=== PATIENT | female | born 1980 ===

== ENCOUNTER 2017-02-05 12:37 | Inpatient (IN) | payer MEDICAID ==
[2017-02-05] MEDS ORDERED: Sodium Chloride 0.9% 1,000 ML IV ONE (12:57)
[2017-02-05] MEDS ORDERED: ACETYLCYSTEINE IVPB ONE (13:00)
[2017-02-05] MEDS ORDERED: DEXTROSE 5% IVPB ONE (13:00)
[2017-02-05] MEDS ORDERED: WATER IVPB ONE (13:00)
[2017-02-05 13:12] LABS: BASO # 0.1 K/uL (0.0-0.2); BASO % 0.8 % (0.0-2.0); EOS # 0.1 K/uL (0.0-0.7); EOS % 0.7 % (0.0-4.0); HEMATOCRIT 38.6 % (34.0-47.0); LYMPH # 1.6 K/uL (1.0-4.3); LYMPH % 11.3 % (20.0-40.0); MEAN CORPUSCULAR HEMOGLOBIN 28.3 pg (27.0-31.0); MEAN CORPUSCULAR HGB CONC 33.7 g/dL (33.0-37.0); MEAN PLATELET VOLUME 7.1 fL (7.2-11.7); MONO % 7.4 % (0.0-10.0); RED CELL DISTRIBUTION WIDTH 14.4 % (11.5-14.5)
[2017-02-05 13:13] LABS: MEAN CELL VOLUME 84.1 fL (81.0-99.0)
[2017-02-05 13:22] LABS: RBC URINE 30 /hpf (0-3); URINE BACTERIA RARE (<OCC); URINE BILIRUBIN NEGATIVE (NEGATIVE); URINE BLOOD 3+ (NEGATIVE); URINE COLOR Yellow (YELLOW); URINE GLUCOSE (UA) NORMAL (Normal); URINE KETONE NEGATIVE (NEGATIVE); URINE LEUKOCYTE ESTERASE NEG Leu/uL (Negative); URINE PROTEIN NEGATIVE (NEGATIVE); URINE UROBILINOGEN NORMAL mg/dL (0.2-1.0); WBC URINE 2 /hpf (0-5)
--- NOTE | 2017-02-05 13:22 | C.PDOC ---
History Of Present Illness 36 year old female, whose PMHx includes Depression, presents to the ED for psychiatric evaluation after a reported overdose at home earlier today. Patient reports she ingested a combination of Advil PM, Xanax, muscle relaxers, and heroin. Patient initially reported that she also took Tylenol, but then later denied this. Patient notes she overdosed as a suicide attempt. She denies homicidal ideation at this time. Time Seen by Provider: 02/05/17 13:01 Chief Complaint (Nursing): Psychiatric Evaluation History Per: Patient History/Exam Limitations: no limitations Onset/Duration Of Symptoms: Hrs Current Symptoms Are (Timing): Still Present Suicide/Self Injury Attempted (Context): Ingestion Modifying Factor(s): Narcotics (heroin ) Associated Symptoms: Suicidal Thoughts, Suicidal Plan Involuntary Hold By: None Recent travel outside of the [place]: No Additional History Per: Patient Past Medical History Reviewed: Historical Data, Nursing Documentation, Vital Signs Vital Signs: Last Vital Signs Temp 97.8 F 02/06/17 07:41 Pulse 75 02/06/17 07:41 Resp 20 02/06/17 07:41 BP 121/75 02/06/17 07:41 Pulse Ox 99 02/06/17 07:41 - Medical History PMH: Asthma (SHORTNESS OF BREATH), Bipolar Disorder, Depression, HTN (BP WNL), Schizophrenia Denies: Diabetes, Hepatitis, HIV (HIV negative), Chronic Kidney Disease, Seizures, Sexually Transmitted Disease Surgical History: No Surg Hx - [facility] Procedures DETOXIFICATION SERVICES FOR SUBSTANCE ABUSE TREATMENT (03/30/16) GROUP MFTS FOR SUBSTANCE ABUSE TREATMENT, PSYCHOEDUCATION (03/30/16) Family History: States: Unknown Family Hx - Social History Hx Alcohol Use: Yes Hx Substance Use: Yes (LAST USE 5 MINUTES AGO) - Immunization History Hx Tetanus Toxoid Vaccination: No Hx Influenza Vaccination: No Hx Pneumococcal Vaccination: No Review Of Systems Psych: Positive for: Suicidal ideation (attempted overdose ). Negative for: Other (homicidal ideation ) Physical Exam - Physical Exam Appears: No Acute Distress, Other (mildly somnolent) Skin: Normal Color, Warm, Dry Oral Mucosa: Moist Neck: Supple Chest: Symmetrical, No Deformity, No Tenderness Cardiovascular: Rhythm Regular, No Murmur Respiratory: Normal Breath Sounds, No Rales, No Rhonchi, No Wheezing Gastrointestinal/Abdominal: Soft, No Tenderness, No Guarding, No Rebound Extremity: Normal ROM, Capillary Refill (less than 2 seconds ) Neurological/Psych: Oriented x3, Normal Speech, Normal Cognition Gait: Steady ED Course And Treatment - Laboratory Results Result Diagrams: 02/06/17 07:03 02/06/17 07:03 ECG: Interpreted By Me, Viewed By Me ECG Rhythm: Sinus Tachycardia, PVC Interpretation Of ECG: Sinus tachycardia at rate 114bpm with PVCs. Normal intervals. Rate From EC O2 Sat by Pulse Oximetry: 99 (on RA) Pulse Ox Interpretation: Normal Medical Decision Making Medical Decision Making: Impression: 36 year old female with suicidal attempt, reported overdose Plan: * Bloodwork * urinalysis * EKG * CXR * reassess and disposition Progress: Bloodwork, Urinalysis, EKG and CXR ordered and reviewed. Acetadote IV and IV Fluids administered. Disposition - Disposition Disposition: HOSPITALIZED Disposition Time: 01:00 Condition: STABLE - Clinical Impression Clinical Impression: Overdose, Suicide attempt - Scribe Statement The provider has reviewed the documentation as recorded by the Scribe (Zofia Hunter) Provider Attestation: All medical record entries made by the Scribe were at my direction and personally dictated by me. I have reviewed the chart and agree that the record accurately reflects my personal performance of the history, physical exam, medical decision making, and the department course for this patient. I have also personally directed, reviewed, and agree with the discharge instructions and disposition.
[2017-02-05 13:56] LABS: ALCOHOL SERUM < 10 mg/dl (0-10); BILIRUBIN,TOTAL 0.9 mg/dL (0.2-1.3); CALCIUM 8.7 mg/dl (8.6-10.4); GFR AFRICAN-AMERICAN > 60; GLUCOSE,RANDOM 78 mg/dL (65-105)
[2017-02-05 14:01] LABS: ALB/GLOB RATIO 0.9 (1.0-2.1); ALKALINE PHOSPHATASE 51 U/L (38-126); ALT/SGPT 34 U/L (9-52); AST/SGOT 32 U/L (14-36); BLOOD UREA NITROGEN 10 mg/dL (7-17); CARBON DIOXIDE 26 mmol/L (22-30); CHLORIDE 101 mmol/L (98-107); POTASSIUM 4.3 mmol/L (3.6-5.2); SODIUM 137 mmol/L (132-148)
--- NOTE | 2017-02-05 14:09 | RAD ---
HISTORY: pysch COMPARISON: Chest x-ray performed 04/01/16 TECHNIQUE: Chest, one view. FINDINGS: Examination limited by habitus. LUNGS: No focal consolidation. Please note that chest x-ray has limited sensitivity for the detection of pulmonary masses. PLEURA: No significant pleural effusion identified. No definite pneumothorax . CARDIOVASCULAR: The cardiomediastinal silhouette appears within normal limits of size. OSSEOUS STRUCTURES: No acute osseous abnormality identified. VISUALIZED UPPER ABDOMEN: Unremarkable. OTHER FINDINGS: None. IMPRESSION: No focal consolidation, significant pleural effusion, or definite pneumothorax identified.
[2017-02-05] MEDS: Sodium Chloride 0.9% 1,000 ML IV SCH ×3 (15:27→23:25)
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
[2017-02-05 16:01] LABS: INR 1.2
[2017-02-05 16:27] LABS: BLOOD UREA NITROGEN 8 mg/dL (7-17); CALCIUM 8.1 mg/dl (8.6-10.4); CARBON DIOXIDE 25 mmol/L (22-30); CHLORIDE 100 mmol/L (98-107); GFR AFRICAN-AMERICAN > 60; GLUCOSE,RANDOM 80 mg/dL (65-105); POTASSIUM 3.9 mmol/L (3.6-5.2); SODIUM 136 mmol/L (132-148)
[2017-02-05] MEDS: Sucralfate 1 gm/10 ml Oral Susp UD PO SCH (19:40)
[2017-02-05] MEDS: Divalproex 500 mg DR Tab PO SCH (19:45)
[2017-02-06 01:41] LABS: BLOOD UREA NITROGEN 9 mg/dL (7-17); CARBON DIOXIDE 23 mmol/L (22-30); CHLORIDE 104 mmol/L (98-107); GFR AFRICAN-AMERICAN > 60; GLUCOSE,RANDOM 79 mg/dL (65-105); POTASSIUM 3.7 mmol/L (3.6-5.2); SODIUM 136 mmol/L (132-148)
[2017-02-06 01:48] VITALS: O2SAT 99
[2017-02-06] MEDS: Sodium Chloride 0.9% 1,000 ML IV SCH ×2 (04:15→08:10)
[2017-02-06 07:20] LABS: RBC URINE < 1 /hpf (0-3); URINE BILIRUBIN NEGATIVE (NEGATIVE); URINE BLOOD 3+ (NEGATIVE); URINE COLOR Yellow (YELLOW); URINE GLUCOSE (UA) NORMAL (Normal); URINE KETONE NEGATIVE (NEGATIVE); URINE LEUKOCYTE ESTERASE NEG Leu/uL (Negative); URINE PROTEIN NEGATIVE (NEGATIVE); URINE UROBILINOGEN NORMAL mg/dL (0.2-1.0); WBC URINE 2 /hpf (0-5)
[2017-02-06 07:20] LABS: INR 1.1
[2017-02-06 07:32] LABS: ALB/GLOB RATIO 0.9 (1.0-2.1); ALKALINE PHOSPHATASE 60 U/L (38-126); ALT/SGPT 31 U/L (9-52); AST/SGOT 19 U/L (14-36); BILIRUBIN,TOTAL 0.7 mg/dL (0.2-1.3); BLOOD UREA NITROGEN 8 mg/dL (7-17); CALCIUM 8.2 mg/dl (8.6-10.4); CARBON DIOXIDE 22 mmol/L (22-30); CHLORIDE 106 mmol/L (98-107); GFR AFRICAN-AMERICAN > 60; GLUCOSE,RANDOM 91 mg/dL (65-105); MAGNESIUM 1.8 mg/dL (1.6-2.3); PHOSPHOROUS 2.5 mg/dL (2.5-4.5); POTASSIUM 3.7 mmol/L (3.6-5.2); SODIUM 137 mmol/L (132-148)
[2017-02-06 07:42] LABS: BASO # 0.1 K/uL (0.0-0.2); BASO % 0.7 % (0.0-2.0); EOS # 0.1 K/uL (0.0-0.7); EOS % 0.9 % (0.0-4.0); HEMATOCRIT 35.4 % (34.0-47.0); LYMPH # 2.8 K/uL (1.0-4.3); LYMPH % 26.3 % (20.0-40.0); MEAN CELL VOLUME 82.5 fL (81.0-99.0); MEAN CORPUSCULAR HEMOGLOBIN 28.4 pg (27.0-31.0); MEAN CORPUSCULAR HGB CONC 34.4 g/dL (33.0-37.0); MEAN PLATELET VOLUME 7.2 fL (7.2-11.7); MONO # 0.7 K/uL (0.0-0.8); MONO % 6.9 % (0.0-10.0); RED CELL DISTRIBUTION WIDTH 13.8 % (11.5-14.5); WHITE BLOOD COUNT 10.6 K/uL (4.8-10.8)
--- NOTE | 2017-02-06 09:00 | CP.PCM.PN ---
Subjective - Date & Time of Evaluation Date of Evaluation: 02/06/17 Time of Evaluation: 09:00 - Subjective Subjective: Dr. Griffin note: Patient is seen and examined in room. Patient is in bed comfortable. She currently denies any suicidal or homicidal ideation and is also asking to go home though she also wants somthing for opoid withdrawal. She reports a 50 bag of heroin a day use. Her last use was the morning of admission. She is anxious but denies any nausea, vomiting, or diarrhea. Objective - Vital Signs/Intake and Output Vital Signs (last 24 hours): Temp Pulse Resp BP Pulse Ox 97.8 F 75 20 121/75 99 02/06/17 07:41 02/06/17 07:41 02/06/17 07:41 02/06/17 07:41 02/06/17 07:41 Intake and Output: 02/06/17 02/06/17 06:59 18:59 Intake Total 600 Balance 600 - Medications Medications: Current Medications Divalproex Sodium (Depakote Dr) 500 mg PO BID [facility] Last Admin: 02/05/17 19:45 Dose: 500 mg Enoxaparin Sodium (Lovenox) 40 mg SC DAILY [facility] Famotidine (Pepcid) 20 mg PO Q12 [facility] Last Admin: 02/05/17 21:56 Dose: 20 mg Folic Acid (Folic Acid) 1 mg PO DAILY [facility] Gabapentin (Neurontin) 300 mg PO TID [facility] Last Admin: 02/05/17 19:41 Dose: Not Given Haloperidol Lactate (Haldol) 5 mg IVP Q6H PRN PRN Reason: Agitation Last Admin: 02/06/17 04:31 Dose: 5 mg Sodium Chloride (Sodium Chloride 0.9%) 1,000 mls @ 120 mls/hr IV .Q8H20M [facility] Last Admin: 02/06/17 08:10 Dose: Not Given Ondansetron HCl (Zofran Inj) 4 mg IVP Q6H PRN PRN Reason: Nausea/Vomiting Pneumococcal Polyvalent Vaccine (Pneumovax 23 Vaccine) 0.5 ml IM .ONCE ONE Stop: 02/07/17 10:01 Sucralfate (Carafate Oral Susp) 1 gm PO DAILY [facility] Last Admin: 02/05/17 19:40 Dose: 1 gm Thiamine HCl (Vitamin B1 Tab) 100 mg PO DAILY [facility] Trazodone HCl (Desyrel) 100 mg PO HS [facility] Last Admin: 02/05/17 21:56 Dose: 100 mg - Labs Labs: 02/06/17 07:03 02/06/17 07:03 PT 12.8 SECONDS (9.7-12.2) H 02/06/17 07:03 INR 1.1 02/06/17 07:03 APTT 31 SECONDS (21-34) 02/06/17 07:03 - Constitutional Appears: Non-toxic, No Acute Distress - Eye Exam Eye Exam: absent: Nystagmus, Scleral icterus - Respiratory Exam Respiratory Exam: Clear to Ausculation Bilateral. absent: Rhonchi, Wheezes - Cardiovascular Exam Cardiovascular Exam: Tachycardia, REGULAR RHYTHM, RRR, +S1, +S2. absent: Gallop , Rubs - GI/Abdominal Exam GI & Abdominal Exam: Soft, Normal Bowel Sounds. absent: Tenderness - Extremities Exam Extremities Exam: absent: Pedal Edema - Back Exam Back Exam: NORMAL INSPECTION - Psychiatric Exam Psychiatric exam: Normal Affect, Normal Mood - Skin Skin Exam: Normal Color Additional comments: Patient has several tattoos. Assessment and Plan - Assessment and Plan (Free Text) Assessment: Polysubstance Abuse/Overdose 02/06: Toxycology report is negative for Benzos, but positive for phencyclidine , THC, and opiates. Have transferred patient to psych today. Hepatitis is negative. Need to follow up HIV and RPR. Patient is stable for transfer to psych floor. poison control contacted; patient reportedly took xanax, advil PM (watch for anticholinergic effects), and "50" bags of heroin, and unknown muscle relaxant in entire bottles worth -will monitor serial labs; BMP, EKG for any changes Q6H, currently all WNL, patient needs to be on structural drafter -Salicylates, Acetaminophen, EtOH all negative; however CIWA protocol ordered as well as daily thiamine and folate -1:1 Sitter -Psychiatry: Dr. Mendosa; appreciate recs -as patient is sex worker, and IVDA ordered hepatitis, HIV, and RPR at the patients request and permission; patient was tested one month ago and states she was negative and just recently started using needles for heroin Suicide Attempt -1:1 sitter -NPO for 24 hours -Psychiatry: Dr. Mendosa; appreciate recs Proph pepcid PO Carafate for upset stomach Haldol PRN for agitation; no narcotics or other sedating agents, no tylenol/ ibuprofen for pain as patient took unknown amount of all cannot give SCD for suicide risk and no lovenox 2/2 to possible renal injury with ibuprofen overdose head of bed elevated NPO for next 24 hours
[2017-02-06] MEDS: Sucralfate 1 gm/10 ml Oral Susp UD PO SCH (09:28)
[2017-02-06] MEDS: Divalproex 500 mg DR Tab PO SCH ×2 (09:29→18:06)
[2017-02-06] MEDS ORDERED: Enoxaparin 40 mg Syringe SC SCH (10:00)
--- NOTE | 2017-02-06 12:04 | CARD ---
APPROVED REPORT EKG Measurement Heart [id number] ID [id number] <Conclusion> Normal sinus rhythm Normal ECG
--- NOTE | 2017-02-06 13:32 | CARD ---
APPROVED REPORT EKG Measurement Heart [id number] <Conclusion> Sinus tachycardia with frequent premature ventricular complexes Otherwise normal ECG
--- NOTE | 2017-02-06 17:24 | PCM.BM ---
<Deshaun Rodriguez - Last Filed: 02/06/17 17:22> Treatment Plan Problems - Problems identified on initial assessmt Suicidal Ideation Date Initiated: 02/06/17 Time Initiated: 15:30 Assessment reference: NA Status: Active Opiates Abuse Date Initiated: 02/06/17 Time Initiated: 15:30 Assessment reference: NA Status: Active Treatment assets and liabiliti Patient Assests: ADL independent, physically healthy, good support system Patient Liabilities: substance abuse (Heroin, Xanax) - Milieu Protocol Maintain good personal hygiene: daily Encourage regular showers, daily Remind patient to perform daily oral care Conduct patient checks and document Observation sheet: Q15 minutes Maintain personal safety: every shift Educate patient to report safety concerns to staff, every shift Monitor environment for contraband/sharps Medication safety: Monitor for expected outcome, potential side effects: every shift, Assess barriers to learning: every shift, Assess readiness for medication education: every shift <Isabel De La Cruz - Last Filed: 02/11/17 09:49> Family Contact Family involvement: Famliy/SO not involved - Goals for Treatment Patient goals for treatment: "I want to go to rehab." Discharge/Continuing Care - Education Needs Education Needs: Patient Medication, Patient Coping Skills, Patient Placement options, Patient Community resources - Discharge Discharge Criteria: Tolerates medication w/o severe side effects, Free of Suicidal thoughts, No longer exhibiting s/s of withdrawal, Reduction of target symptoms Discharge to:: Substance Abuse Rehab - Treatment Team Participation Discussed with Family/SO: No Was Patient/Family/SO present at Treatment Team Meeting: Yes <Katelyn Mendosa - Last Filed: 02/11/17 10:50> - Diagnosis (1) Bipolar 1 disorder, depressed, severe Status: Acute Interventions: 02/11/17 10:48 * Assess/adjust medications daily and /or as needed * See patient on an individual basis 7x/week to assess level of manic behaviors and stability * Discuss risks, benefits, side effects and alternatives of medications * (2) Opioid dependence Status: Acute Interventions: 02/11/17 10:50 * Assess 7x/week regarding severity of withdrawal * Educate regarding risks, benefits, side effects and alternatives of medications * Use Motivational Interviewing for abstinence * Use CBT for relapse prevention * Medication management for withdrawal symptoms * Encourage medication assisted treatment *
--- NOTE | 2017-02-06 21:56 | PCM.PSYCH ---
Initial Psychiatric Evaluation - Initial Psychiatric Evaluation Type of Admission: Voluntary Legal Status: Capacity Chief Complaint (in patient's own words): I Over Dosed on pills.' History of Present Illness and Precipitating Events: Patient is a 35 y/o , single, unemployed female that presented to the ER after an incomplete suicidal attempt while overdosing on pills. Pt reports that she OD on 'an entire bottle of Advil PM, bottle of unknown muscle relaxants, bottle of xanax, "30-50 bags of heroin IVDA". As per the hospital charts: she states that she is simply "over her life" and "just wants to sleep" and truly wanted to . She has tried this one other time in the past , unsuccessfuly as well. She exhibits depressed mood, belle indifferance, and does not regret what she did; she regrets that she was unsuccessful. She states that if she was alone/to go home that she would attempt to kill herself again. Pt remained depressed throughout the interview. She didn't elaborate the cause of depressed mood. However, still reports feelings of hopelessness and helplessness. She denies any AVH or any paranoia. Patient complains of heroin withdrawal symptoms including chills, body aches, abdominal cramps, anxiety and hot flashes. Past medical history None reported Current Medications: Active Medications Generic Name Dose Route Start Last Admin Trade Name Freq PRN Reason Stop Dose Admin Divalproex Sodium 500 mg 02/05/17 18:00 02/06/17 18:[address] PO 500 mg BID [facility] Administration Enoxaparin Sodium 40 mg 02/08/17 10:00 Lovenox SC DAILY [facility] Famotidine 20 mg 02/05/17 22:00 02/06/17 21:55 Pepcid PO Not Given Q12 [facility] Folic Acid 1 mg 02/06/17 10:00 02/06/17 09:29 Folic Acid PO 1 mg DAILY [facility] Administration Gabapentin 300 mg 02/05/17 18:00 02/05/17 19:41 Neurontin PO Not Given TID [facility] Haloperidol Lactate 5 mg 02/05/17 15:05 02/06/17 04:31 Haldol IVP 5 mg Q6H PRN Administration Agitation Sodium Chloride 1,000 mls @ 120 mls/hr 02/05/17 15:00 02/06/17 08:10 Sodium Chloride 0.9% IV Not Given .Q8H20M [facility] Methadone HCl 20 mg 02/06/17 10:15 02/06/17 10:15 Methadone PO 20 mg DAILY [facility] Administration Ondansetron HCl 4 mg 02/05/17 14:59 Zofran Inj IVP Q6H PRN Nausea/Vomiting Pneumococcal Polyvalent Vaccine 0.5 ml 02/07/17 10:00 Pneumovax 23 Vaccine IM 02/07/17 10:01 .ONCE ONE Sucralfate 1 gm 02/05/17 15:30 02/06/17 09:28 Carafate Oral Susp PO 1 gm DAILY [facility] Administration Thiamine HCl 100 mg 02/06/17 10:00 02/06/17 11:14 Vitamin B1 Tab PO 100 mg DAILY [facility] Administration Trazodone HCl 100 mg 02/05/17 22:00 02/05/17 21:56 Desyrel PO 100 mg HS [facility] Administration Past Psychiatric History - Past Psychiatric History Previous Treatment History: Inpatient Pertinent Medical Hx (Current Medical&Sleep Prob, Allergies): Allergies Allergy/AdvReac Type Severity Reaction Status Date / Time No Known Allergies Allergy Verified 02/05/17 12:50 Divalproex [Depakote DR] 500 mg PO BID #60 tcp 04/03/16 Gabapentin [Neurontin] 300 mg PO TID #90 cap 04/03/16 Nitrofurantoin Macrocrystals [Macrobid] 100 mg PO Q12 #8 cap 04/03/16 traZODone [Desyrel] 100 mg PO HS #30 tab 04/03/16 Review of Systems - Review of Systems All systems: reviewed and no additional remarkable complaints except - Psychiatric Psychiatric: Anxiety, Irritability, Mood Swings, Suicidal Ideation Mental Status Examination - Personal Presentation Personal Presentation: Looks stated age - Affect Affect: Constricted, Depressed - Motor Activity Motor Activity: Calm - Reliability in Providing Information Reliability in Providing Information: Fair - Speech Speech: Organized - Mood Mood: Depressed, Anxious - Formal Thought Process Formal Thought Process: No Impairment - Obsessions/Compulsions Obsessions: No Compulsions: No - Cognitive Functions Orientation: Person, Place, Situation, Time Sensorium: Alert Attention/Concentration: Attentive Abstract Thinking: [place] Estimate of Intelligence: Below average Judgement: Imparied, as evidence by: Poor judgement, Imparied, as evidence by: Lack of insight into illness - Risk Risk: Suicidal, Withdrawal, Diminished functioning - Strength & Assets Inventory Strength & Assets Inventory: Family support DSM 5 DX - DSM 5 DSM 5 Diagnosis: Bipolar disorder most recent episode depressed severe without psychotic features Opiate use disorder severe Opiate withdrawal Sedative/hypnotic use disorder - Recommended/Plan of Treatment Treatment Recommendations and Plan of Treatment: Bipolar disorder most recent episode depressed severe without psychotic features CBT psychoeducation Supportive therapy, group therapy Trazodone 100 mg by mouth daily at HS Depakote 500 mg by mouth twice Neurontin 300 mg PO TID Opiate use disorder severe CBT psychoeducation supportive therapy, group therapy Use OK for abstinence Methadone taper Sedative/hypnotic use disorder CBT psychoeducation supportive therapy, group therapy Use [place] for abstinence Pt agreed to go to [facility] after medical clearance - Smoking Cessation Smoking Cessation Initiated: No
[2017-02-07] MEDS: Divalproex 500 mg DR Tab PO SCH ×2 (09:16→17:12)
[2017-02-07] MEDS: Sucralfate 1 gm/10 ml Oral Susp UD PO SCH (09:16)
[2017-02-07] MEDS ORDERED: Pneumococcal 23-Valent Vaccine IM ONE (10:00)
[2017-02-07] MEDS ORDERED: Influenza Vaccine 60 mcg/0.5 mL SYR (4YR UP) IM ONE (10:00)
[2017-02-07 14:02] LABS: BASO # 0.1 K/uL (0.0-0.2); BASO % 0.5 % (0.0-2.0); EOS % 0.2 % (0.0-4.0); HEMATOCRIT 34.5 % (34.0-47.0); LYMPH # 3.1 K/uL (1.0-4.3); LYMPH % 27.8 % (20.0-40.0); MEAN CELL VOLUME 82.2 fL (81.0-99.0); MEAN CORPUSCULAR HEMOGLOBIN 28.5 pg (27.0-31.0); MEAN CORPUSCULAR HGB CONC 34.7 g/dL (33.0-37.0); MEAN PLATELET VOLUME 6.9 fL (7.2-11.7); MONO # 0.6 K/uL (0.0-0.8); MONO % 5.6 % (0.0-10.0); NRBC % 0.1 % (0.0-2.0); RED CELL DISTRIBUTION WIDTH 14.2 % (11.5-14.5); WHITE BLOOD COUNT 11.2 K/uL (4.8-10.8)
[2017-02-07 14:20] LABS: ALB/GLOB RATIO 1.2 (1.0-2.1); ALKALINE PHOSPHATASE 51 U/L (38-126); ALT/SGPT 23 U/L (9-52); AST/SGOT 15 U/L (14-36); BILIRUBIN,TOTAL 0.7 mg/dL (0.2-1.3); BLOOD UREA NITROGEN 13 mg/dL (7-17); CALCIUM 8.5 mg/dl (8.6-10.4); CARBON DIOXIDE 24 mmol/L (22-30); CHLORIDE 103 mmol/L (98-107); GFR AFRICAN-AMERICAN > 60; GLUCOSE,RANDOM 86 mg/dL (65-105); MAGNESIUM 1.8 mg/dL (1.6-2.3); PHOSPHOROUS 3.1 mg/dL (2.5-4.5); POTASSIUM 4.1 mmol/L (3.6-5.2); SODIUM 137 mmol/L (132-148); TOTAL PROTEIN 7.1 g/dL (6.3-8.3)
[2017-02-08 08:01] LABS: BASO % 0.4 % (0.0-2.0); EOS # 0.1 K/uL (0.0-0.7); EOS % 1.1 % (0.0-4.0); HEMATOCRIT 34.3 % (34.0-47.0); LYMPH # 3.4 K/uL (1.0-4.3); LYMPH % 35.7 % (20.0-40.0); MEAN CELL VOLUME 82.2 fL (81.0-99.0); MEAN CORPUSCULAR HEMOGLOBIN 28.3 pg (27.0-31.0); MEAN CORPUSCULAR HGB CONC 34.4 g/dL (33.0-37.0); MEAN PLATELET VOLUME 6.9 fL (7.2-11.7); MONO # 0.5 K/uL (0.0-0.8); MONO % 5.7 % (0.0-10.0); RED CELL DISTRIBUTION WIDTH 14.4 % (11.5-14.5); WHITE BLOOD COUNT 9.5 K/uL (4.8-10.8)
[2017-02-08 08:20] LABS: ALB/GLOB RATIO 1.2 (1.0-2.1); ALKALINE PHOSPHATASE 51 U/L (38-126); ALT/SGPT 24 U/L (9-52); AST/SGOT 20 U/L (14-36); BILIRUBIN,TOTAL 0.9 mg/dL (0.2-1.3); BLOOD UREA NITROGEN 13 mg/dL (7-17); CALCIUM 8.5 mg/dl (8.6-10.4); CARBON DIOXIDE 27 mmol/L (22-30); CHLORIDE 103 mmol/L (98-107); GFR AFRICAN-AMERICAN > 60; GLUCOSE,RANDOM 77 mg/dL (65-105); MAGNESIUM 1.8 mg/dL (1.6-2.3); PHOSPHOROUS 3.2 mg/dL (2.5-4.5); POTASSIUM 3.8 mmol/L (3.6-5.2); SODIUM 137 mmol/L (132-148); TOTAL PROTEIN 6.7 g/dL (6.3-8.3)
--- NOTE | 2017-02-08 09:33 | PCM.PYCHPN ---
Psychiatric Progress Note - Psychiatric Progress Note Patient seen today, length of contact: 15 min Patient Chief Complaint: I am feeling little better.' Problems Identified/Issues Discussed: Patient seen and evaluated, chart reviewed and discussed with the nurse. Patient reports some improvement in her mood and feelings of hopelessness and helplessness. However, she remained isolated, confined and withdrawn. Patient reports improvement in her withdrawal symptoms but still reports headaches, cramps and sweating. She is taking medication and denies any side effects. She needs more time for stabilization. Supportive therapy and psychoeducation were given. Medication Change: No Medical Record Reviewed: Yes Mental Status Examination - Cognitive Function Orientation: Person, Place, Situation, Time Memory: Intact Attention: WNL Concentration: Poor Association: WNL Fund of Knowledge: Poor - Mood Mood: Depressed, Anxious - Affect Affect: Constricted, Depressed - Speech Speech: Soft - Formal Thought Process Formal Thought Process: No Impairment - Suicidal Ideation Suicidal Ideation: No - Homicidal Ideation Homicidal Ideation: No Goal/Treatment Plan - Goal/Treatment Plan Need for Continued Stay: Severe depression anxiety, Severe functional impairment Progress Toward Problem(s) and Goals/Treatment Plan: Bipolar disorder most recent episode depressed severe without psychotic features CBT psychoeducation Supportive therapy, group therapy Trazodone 100 mg by mouth daily at HS Depakote 500 mg by mouth twice Neurontin 300 mg PO TID Opiate use disorder severe CBT psychoeducation supportive therapy, group therapy Use [place] for abstinence Methadone taper Sedative/hypnotic use disorder CBT psychoeducation supportive therapy, group therapy Use [place] for abstinence Pt agreed to go to 5E after medical clearance - Smoking Cessation Smoking Cessation Initiated: No
[2017-02-08] MEDS: Divalproex 500 mg DR Tab PO SCH ×2 (09:46→17:34)
[2017-02-08] MEDS: Sucralfate 1 gm/10 ml Oral Susp UD PO SCH (09:46)
[2017-02-08] MEDS ORDERED: Enoxaparin 40 mg Syringe SC SCH (10:00)
[2017-02-09] MEDS: Sucralfate 1 gm/10 ml Oral Susp UD PO SCH (10:00)
[2017-02-09] MEDS: Divalproex 500 mg DR Tab PO SCH ×2 (10:32→17:13)
[2017-02-09 11:59] LABS: BASO # 0.1 K/uL (0.0-0.2); BASO % 0.6 % (0.0-2.0); EOS # 0.1 K/uL (0.0-0.7); EOS % 0.6 % (0.0-4.0); HEMATOCRIT 38.8 % (34.0-47.0); LYMPH % 28.9 % (20.0-40.0); MEAN CORPUSCULAR HEMOGLOBIN 28.2 pg (27.0-31.0); MEAN CORPUSCULAR HGB CONC 33.4 g/dL (33.0-37.0); MEAN PLATELET VOLUME 7.1 fL (7.2-11.7); MONO # 0.6 K/uL (0.0-0.8); MONO % 5.4 % (0.0-10.0); RED CELL DISTRIBUTION WIDTH 14.4 % (11.5-14.5); WHITE BLOOD COUNT 10.4 K/uL (4.8-10.8)
[2017-02-09 12:00] LABS: ALB/GLOB RATIO 1.3 (1.0-2.1); ALKALINE PHOSPHATASE 57 U/L (38-126); ALT/SGPT 26 U/L (9-52); AST/SGOT 19 U/L (14-36); BILIRUBIN,TOTAL 0.7 mg/dL (0.2-1.3); BLOOD UREA NITROGEN 13 mg/dL (7-17); CARBON DIOXIDE 25 mmol/L (22-30); CHLORIDE 101 mmol/L (98-107); GFR AFRICAN-AMERICAN > 60; GLUCOSE,RANDOM 97 mg/dL (65-105); MAGNESIUM 1.7 mg/dL (1.6-2.3); SODIUM 137 mmol/L (132-148); TOTAL PROTEIN 7.8 g/dL (6.3-8.3)
[2017-02-09 12:02] LABS: MEAN CELL VOLUME 84.3 fL (81.0-99.0)
--- NOTE | 2017-02-10 05:40 | PCM.PYCHPN ---
Psychiatric Progress Note - Psychiatric Progress Note Patient seen today, length of contact: 16 min Patient Chief Complaint: "not doing good, I want my meds" Problems Identified/Issues Discussed: The pt is seen, chart reviewed, case discussed with staff. Support given, CBT and MS used briefly No new symptoms reported, improving slowly and needs more time No SEs from medications, risks discussed. After care discussed Medication Change: Yes (meds adjusted) Medical Record Reviewed: Yes Mental Status Examination - Cognitive Function Orientation: Person, Place, Situation, Time Memory: Intact Attention: WNL Concentration: Poor Association: WNL Fund of Knowledge: Poor - Mood Mood: Depressed, Anxious - Affect Affect: Constricted, Depressed - Speech Speech: Soft - Formal Thought Process Formal Thought Process: No Impairment - Suicidal Ideation Suicidal Ideation: No - Homicidal Ideation Homicidal Ideation: No Goal/Treatment Plan - Goal/Treatment Plan Need for Continued Stay: Severe depression anxiety, Discharge may exacerbated symptoms, Severe functional impairment Progress Toward Problem(s) and Goals/Treatment Plan: Continue medications Support and psychoeducation daily Attend groups and activities daily After care planning by SU
[2017-02-10 09:25] LABS: BASO % 0.2 % (0.0-2.0); EOS # 0.1 K/uL (0.0-0.7); EOS % 1.5 % (0.0-4.0); HEMATOCRIT 37.8 % (34.0-47.0); LYMPH # 4.1 K/uL (1.0-4.3); LYMPH % 41.7 % (20.0-40.0); MEAN CELL VOLUME 82.9 fL (81.0-99.0); MEAN CORPUSCULAR HEMOGLOBIN 28.7 pg (27.0-31.0); MEAN CORPUSCULAR HGB CONC 34.6 g/dL (33.0-37.0); MEAN PLATELET VOLUME 6.9 fL (7.2-11.7); MONO # 0.6 K/uL (0.0-0.8); MONO % 5.7 % (0.0-10.0); RED CELL DISTRIBUTION WIDTH 14.3 % (11.5-14.5); WHITE BLOOD COUNT 9.8 K/uL (4.8-10.8)
[2017-02-10 09:47] LABS: ALB/GLOB RATIO 1.3 (1.0-2.1); ALKALINE PHOSPHATASE 56 U/L (38-126); ALT/SGPT 18 U/L (9-52); AST/SGOT 20 U/L (14-36); BILIRUBIN,TOTAL 0.7 mg/dL (0.2-1.3); BLOOD UREA NITROGEN 18 mg/dL (7-17); CALCIUM 8.8 mg/dl (8.6-10.4); CARBON DIOXIDE 25 mmol/L (22-30); CHLORIDE 100 mmol/L (98-107); GFR AFRICAN-AMERICAN > 60; GLUCOSE,RANDOM 116 mg/dL (65-105); MAGNESIUM 1.8 mg/dL (1.6-2.3); PHOSPHOROUS 3.3 mg/dL (2.5-4.5); POTASSIUM 3.6 mmol/L (3.6-5.2); SODIUM 135 mmol/L (132-148); TOTAL PROTEIN 7.3 g/dL (6.3-8.3)
[2017-02-10] MEDS: Divalproex 500 mg DR Tab PO SCH ×2 (10:02→17:58)
[2017-02-10] MEDS: Sucralfate 1 gm/10 ml Oral Susp UD PO SCH (10:10)
--- NOTE | 2017-02-10 12:49 | PCM.PYCHPN ---
Psychiatric Progress Note - Psychiatric Progress Note Patient seen today, length of contact: 16 min Patient Chief Complaint: I am feeling little better.' Problems Identified/Issues Discussed: Patient seen and evaluated, chart reviewed and discussed with the nurse. Patient reports some improvement in her mood and feelings of hopelessness and helplessness. However, she remained isolated, confined and withdrawn. Patient reports improvement in her withdrawal symptoms but still reports headaches, cramps and sweating. She is taking medication and denies any side effects. She needs more time for stabilization. Supportive therapy and psychoeducation were given. Medication Change: Yes (meds adjusted) Medical Record Reviewed: Yes Mental Status Examination - Cognitive Function Orientation: Person, Place, Situation, Time Memory: Intact Attention: WNL Concentration: Poor Association: WNL Fund of Knowledge: Poor - Mood Mood: Depressed, Anxious - Affect Affect: Constricted, Depressed - Speech Speech: Soft - Formal Thought Process Formal Thought Process: No Impairment - Suicidal Ideation Suicidal Ideation: No - Homicidal Ideation Homicidal Ideation: No Goal/Treatment Plan - Goal/Treatment Plan Need for Continued Stay: Severe depression anxiety, Discharge may exacerbated symptoms, Severe functional impairment Progress Toward Problem(s) and Goals/Treatment Plan: Bipolar disorder most recent episode depressed severe without psychotic features CBT psychoeducation Supportive therapy, group therapy Trazodone 100 mg by mouth daily at HS Depakote 500 mg by mouth twice Neurontin 300 mg PO TID Opiate use disorder severe CBT psychoeducation supportive therapy, group therapy Use NV for abstinence Methadone taper Sedative/hypnotic use disorder CBT psychoeducation supportive therapy, group therapy Use NV for abstinence - Smoking Cessation Smoking Cessation Initiated: No
[2017-02-11 07:17] VITALS: BP 110/68; PULSE 60; RESP 18; TEMP 96.6
[2017-02-11] MEDS: Sucralfate 1 gm/10 ml Oral Susp UD PO SCH (09:36)
[2017-02-11] MEDS: Divalproex 500 mg DR Tab PO SCH (09:36)
--- NOTE | 2017-02-11 09:42 | PCM.PYCHDC ---
Mental Status Examination - Mental Status Examination Orientation: Person, Place, Situation, Time Memory: Intact Mood: Neutral Affect: Constricted Speech: Soft Attention: WNL Concentration: WNL Association: WNL Fund of Knowledge: WNL Formal Thought Process: No Impairment Description of patient's judgement and insight: good, fair Psychotic Thoughts and Behaviors: denies any AVH Suicidal Ideation: No Current Homicidal Ideation?: No Discharge Summary - Discharge Note Reason for Hospitalization: Patient is a 35 y/o , single, unemployed female that presented to the ER after an incomplete suicidal attempt while overdosing on pills. Pt reports that she OD on 'an entire bottle of Advil PM, bottle of unknown muscle relaxants, bottle of xanax, "30-50 bags of heroin IVDA". As per the hospital charts: she states that she is simply "over her life" and "just wants to sleep" and truly wanted to . She has tried this one other time in the past , unsuccessfuly as well. She exhibits depressed mood, belle indifferance, and does not regret what she did; she regrets that she was unsuccessful. She states that if she was alone/to go home that she would attempt to kill herself again. Pt remained depressed throughout the interview. She didn't elaborate the cause of depressed mood. However, still reports feelings of hopelessness and helplessness. She denies any AVH or any paranoia. Patient complains of heroin withdrawal symptoms including chills, body aches, abdominal cramps, anxiety and hot flashes. Laboratory Data: Abnormal Lab Results 02/10/17 09:18 Sodium 135 Potassium 3.6 Chloride 100 Carbon Dioxide 25 Anion Gap 14 BUN 18 H Creatinine 0.7 Est GFR ( Amer) > 60 Est GFR (Non-Af Amer) > 60 Random Glucose 116 H Calcium 8.8 Phosphorus 3.3 Magnesium 1.8 Total Bilirubin 0.7 AST 20 ALT 18 Alkaline Phosphatase 56 Total Protein 7.3 Albumin 4.1 Globulin 3.2 Albumin/Globulin Ratio 1.3 Consultations:: List each consultation separately and include: 1. Reason for request. 2. Findings. 3. Follow-up Summary of Hospital Course include:: 1. Description of specific treatment plan utilized for patients during their course of treatmen. 2. Summarize the time- course for resolution of acute symptoms and/or regressed behaviors. 3. Describe issues identified and worked on during hospitalization. 4. Describe medication utilized. 5. Describe medical problems identified and treated. 6. Reassessment of suicide risk Summary of Hospital Course: During the course of her stay, patient (pt) started progressively improving and she no longer remained anxious, depressed and suicidal. Her mood was getting better and she started attending groups and meetings and started socializing. The doses of her medications were maximized and patient denied any feelings of hopelessness, helplessness, and worthlessness, denied any problem with the sleep or appetite, denied suicidal ideation or homicidal ideation. Pt denied any auditory or visual hallucinations. Patient reported improvement in her mood and tolerated these medications very well and denied any side effects. Patient was discharged [facility] in [place]. - Final Diagnosis (DSM 5) Condition upon Discharge: STABLE DSM 5: Bipolar disorder most recent episode depressed severe without psychotic features Opiate use disorder severe Sedative/hypnotic use disorder Disposition: HOME/ ROUTINE Follow-up Treatment Plan: Education: Pt was educated and counseled about the risks and benefits of taking and not taking medications. Pt was educated and counseled about the risks of drinking and abusing drugs. Pt was educated and counseled to go to the ER or call 911 if pt develop suicidal ideation or homicidal ideation, worsening of symptoms or severe side effects of the meds. Prescriptions/Medication Reconciliation: Divalproex [Depakote DR] 500 mg PO BID #60 tcp Gabapentin [Neurontin] 300 mg PO BID #60 cap QUEtiapine [Seroquel] 100 mg PO HS #30 tab Sertraline [Zoloft] 100 mg PO DAILY #30 tab - Smoking Cessation Smoking Cessation Medication prescribed: No - Antipsychotic Medications Pt discharged on 2 or more routine antipsychotic medications: No
--- NOTE | 2017-02-11 13:03 | PCM.PYCHPN ---
Psychiatric Progress Note - Psychiatric Progress Note Patient seen today, length of contact: 15 min Patient Chief Complaint: "I need to leave here soon" Problems Identified/Issues Discussed: The pt is seen, chart reviewed, case discussed with staff. The pt is compliant with medications and reports no side-effects. Symptoms are improving but needs more time to stabilize. After care discussed, support and psychoeducation given. Medication Change: Yes (meds adjusted) Medical Record Reviewed: Yes Mental Status Examination - Cognitive Function Orientation: Person, Place, Situation, Time Memory: Intact Attention: WNL Concentration: Poor Association: WNL Fund of Knowledge: Poor - Mood Mood: Depressed, Anxious - Affect Affect: Constricted, Depressed - Speech Speech: Soft - Formal Thought Process Formal Thought Process: No Impairment - Suicidal Ideation Suicidal Ideation: No - Homicidal Ideation Homicidal Ideation: No Goal/Treatment Plan - Goal/Treatment Plan Need for Continued Stay: Severe depression anxiety, Discharge may exacerbated symptoms, Severe functional impairment Progress Toward Problem(s) and Goals/Treatment Plan: Continue medications Support and psychoeducation daily Attend groups and activities daily After care planning by SU
--- NOTE | 2017-02-12 07:26 | HP ---
HISTORY OF PRESENT ILLNESS: The patient is a 36-year-old female with chief complaint of weakness, fatigue and drug overdose. Patient came to the ER, advised admission. PHYSICAL EXAMINATION: GENERAL: Patient is awake, alert, and oriented. VITAL SIGNS: Temperature 98, pulse 90. HEENT: Within normal limits. NECK: Supple. CHEST: Symmetrical. HEART: Regular. ABDOMEN: Soft. EXTREMITIES: No edema. IMPRESSION AND PLAN: . Patient bedrest, neuro check, Psychiatry consult. Brett Griffin MD
== END 2017-02-11 11:35 | disposition home or self-care (01) | DRG 449 ==
LOC: C.ER 12:37 → C.9E 14:52 → C.6T 17:37 → C.5E 02-06 14:52
PROVIDERS: ADMIT Psychiatry & Neurology Psychiatry; ATTEND Psychiatry & Neurology Psychiatry
PROC: GZ3ZZZZ Medication Management (ICD-10-PCS; principal; 2017-02-05)
PROC: HZ2ZZZZ Detoxification Services for Substance Abuse Treatment (ICD-10-PCS; 2017-02-05)
PROC: HZ46ZZZ Group Counseling for Substance Abuse Treatment, Psychoeducation (ICD-10-PCS; 2017-02-05)
PROC: GZHZZZZ Group Psychotherapy (ICD-10-PCS; 2017-02-05)
PROC: GZ56ZZZ Individual Psychotherapy, Supportive (ICD-10-PCS; 2017-02-05)
DX: T39.312A Poisoning by propionic acid derivatives, intentional self-harm, initial encounter (principal); F11.23 Opioid dependence with withdrawal; F31.4 Bipolar disorder, current episode depressed, severe, without psychotic features; T42.4X2A Poisoning by benzodiazepines, intentional self-harm, initial encounter; T40.1X2A Poisoning by heroin, intentional self-harm, initial encounter; T48.202A Poisoning by unspecified drugs acting on muscles, intentional self-harm, initial encounter; F20.9 Schizophrenia, unspecified; F41.9 Anxiety disorder, unspecified; N95.1 Menopausal and female climacteric states; Z91.5 Personal history of self-harm; Y92.009 Unspecified place in unspecified non-institutional (private) residence as the place of occurrence of the external cause